=== PATIENT | male | born 1990 | race African-American/Black ===

== ENCOUNTER 2017-03-29 19:39 | Emergency (ER) | payer OTHER ==
[~2017-03-29] VITALS: Ht 185.4 cm; Wt 88.0 kg
[~2017-03-29 19:39] MED LIST: PLATMIS3; WALKER WHEELS/F1 MIS
[2017-03-29 19:42] VITALS: BP 133/78; PULSE 97; RESP 16; TEMP 98.8; O2SAT 98
--- NOTE | 2017-03-29 21:38 | PD ---
HPI Chief Complaint: Injury Time Seen by Provider: 21:38 Travel History International Travel<30 days: No Contact w/Intl Traveler<30days: No Traveled to known affect area: No History of Present Illness HPI 27 year old male with PMH of fracture of left femur and patella 02/17/17 presents to the ED for evaluation of left leg pain. Gradual onset. The patient can identify no new acute injury. He states that the the pain is worsened by flexion beyond 90. He endorses locking of the knee. Also complains that the leg sometimes feels numb. Denies fevers, chills, weakness of the extremity. He states that he was discharged from the hospital into police custody and has had no follow up. PFSH Past Medical History Arthritis: No Autoimmune Disease: No Anxiety: No Depression: No Cancer: No Cardiovascular Problems: No Chemotherapy: No Cerebrovascular Accident: No Diabetes: No Endocrine: No GERD: No Genitourinary: No Hiatal Hernia: No Immune Disorder: No Musculoskeletal: No Neurologic: No Psychiatric: No Reproductive: No Respiratory: No Migraines: No Radiation Therapy: No Seizures: No Sickle Cell Disease: No Thyroid Disease: No Ulcer: No Social History Alcohol Use: Yes Tobacco Use: Yes Substance Use: Yes (MARIJUANA) Allergies-Medications (Allergen,Severity, Reaction): Coded Allergies: No Known Allergies (Unverified , 02/17/17) Reported Meds & Prescriptions Reported Meds & Active Scripts Active Ibuprofen 800 Mg Tab 800 Mg PO Q8H Review of Systems Except as stated in HPI: all other systems reviewed are Neg Physical Exam Narrative GENERAL: Well-nourished, well-developed cooperative black male in [facility]. SKIN: Focused skin assessment warm/dry. Well healed surgical scars along the left leg. No signs of infection. HEAD: Normocephalic. EYES: No scleral icterus. No injection or drainage. NECK: Supple, trachea midline. No JVD or lymphadenopathy. CARDIOVASCULAR: Regular rate and rhythm without murmurs, gallops, or rubs. RESPIRATORY: Breath sounds clear and equal bilaterally. No accessory muscle use. GASTROINTESTINAL: Abdomen soft, non-tender, nondistended. MUSCULOSKELETAL: No cyanosis, or edema. Patient bears weight with a limp. FOCUSED LEFT LOWER EXTREMITY EXAM: 2+ DP pulse. +TTP of the patella and joint lines of the knee. No warmth. No edema. No patellar balloting. Patient is able to extend the knee to 0 and flex to 90. Into flexion beyond 90 elicits pain. Patient maintains full, active, painless range of motion of the hip, ankle and digits of the left leg. Neurovascularly intact. BACK: Nontender without obvious deformity. No CVA tenderness. Data Data Last Documented VS Vital Signs Date Time Temp Pulse Resp B/P Pulse Ox O2 Delivery O2 Flow Rate FiO2 03/29/17 19:42 98.8 97 16 133/78 98 Room Air Orders Femur (Ap & Lat/2vws) (03/29/17 22:08) Knee, Complete (4vws) (03/29/17 22:08) Ketorolac Inj (Toradol Inj) (03/29/17 22:15) Ice/Cold Pack (03/29/17 22:10) Mandatory Outpatient Referral (03/29/17 22:50) ^ Celestine Bandage (03/29/17 22:57) MDM Medical Decision Making Medical Screen Exam Complete: Yes Emergency Medical Condition: Yes Differential Diagnosis acute on chronic knee pain versus joint effusion versus fracture versus dislocation versus hardware failure versus less likely septic joint versus other Narrative Course 27 year old male with PMH of fracture of left femur and patella 02/17/17 presents to the ED for evaluation of left leg pain. Gradual onset. The patient can identify no new acute injury. He states that the the pain is worsened by flexion beyond 90. He endorses locking of the knee. Also complains that the leg sometimes feels numb. He states that he was discharged from the hospital into police custody and has had no follow up. Vitals reviewed. Physical exam reveals a cooperative black male in NAD. Patient bears weight with a limp.FOCUSED LEFT LOWER EXTREMITY EXAM: 2+ DP pulse. +TTP of the patella and joint lines of the knee. No warmth. No edema. No patellar balloting. Patient is able to extend the knee to 0 and flex to 90. Flexion beyond 90 elicits pain. Patient maintains full, active, painless range of motion of the hip, ankle and digits of the left leg. Neurovascularly intact. Patient was administered IM Toradol. Xrays reveal intact orthopedic hardware, good alignment of previous fracture, possible myositis ossificans. Certainly no reason to admit. Mandatory outpatient follow up placed with Dr. Garzon who performed the ORIF 02/11. Patient instructed to rest, ice, elevate, compress the wound, use a cane if needed for partial weightbearing he was prescribed a short course of anti-inflammatories. I explained the mandatory outpatient follow-up process with the patient. He indicated understanding of instructions and is agreeable to the care plan. This patient stable and discharged home. Diagnosis Primary Impression: Knee pain, left anterior Referrals: James Garzon MD Patient Instructions: General Instructions, Knee Pain (ED) Additional Instructions: Rest, ice, elevate,compress the extremity. Apply ice no longer than 10-15 minutes per hour a few times a day. 800 mg ibuprofen up to 3 times a day as needed for pain. Return to normal, gentle activity as tolerated. Use a cane on the affected side if you are unable to completely bear weight. No running, jumping activities for the next few weeks. Follow up with Dr. Garzon as discussed. Return to the ED for any urgent or emergent medical condition. Med/Other Pt SpecificInfo: Prescription(s) given Scripts Ibuprofen 800 Mg Bqx150 Mg PO Q8H #21 TAB Ref 0 Prov:Rocio Ceron DO 03/29/17 Disposition: 01 DISCHARGE HOME Condition: Stable Talia Jaime Mar 29, 2017 21:38
[2017-03-29] MEDS ORDERED: KETOROLAC TROMETHAMINE 60 MG/2 ML (IM) VIAL IM ONE (22:15)
--- NOTE | 2017-03-29 22:42 | RADRPT ---
EXAM DATE/TIME: 03/29/2017 22:20 [facility] COMPARISON: FEMUR LEFT (AP & LAT/2VWS), February 17, 2017, 14:56. INDICATIONS : Pain post femur surgery 2 months ago. MEDICAL HISTORY : Prior fracture. SURGICAL HISTORY : Surgical repair. ENCOUNTER: Initial ACUITY: 2 months PAIN SCORE: 3/10 LOCATION: Left lower femur. FINDINGS: 4 views left femur show a femoral neck screw and long intramedullary kayy with cerclage spinal wires t raversing the femur. This traverses a comminuted proximal diaphyseal fracture. Good alignment noted. The fracture lines remain. There is some heterogeneous calcification involving the adjacent soft tiss ues consistent with myositis ossificans. 2 screws involving the patella. CONCLUSION: Prior trauma with orthopedic hardware as detailed above. Wenceslao Matute Jr., MD on March 29, 2017 at 22:39 Board Certified Radiologist. This report was verified electronically.
--- NOTE | 2017-03-29 22:43 | RADRPT ---
EXAM DATE/TIME: 03/29/2017 22:22 [facility] COMPARISON: No previous studies available for comparison. INDICATIONS : Pain post femur surgery 2 months ago. MEDICAL HISTORY : Prior fracture. SURGICAL HISTORY : Surgical repair. ENCOUNTER: Initial ACUITY: 2 months PAIN SCORE: 4/10 LOCATION: Left upper knee. FINDINGS: 4 views the knee show 2 orthopedic screws traversing a patellar fracture. Alignment noted. The distal aspects of the femoral intramedullary kayy noted. No new fracture or dislocation. No joint effusion. Soft tissues are unremarkable. CONCLUSION: Prior trauma with orthopedic hardware. Wenceslao Matute Jr., MD on March 29, 2017 at 22:41 Board Certified Radiologist. This report was verified electronically.
[2017-03-29] MEDS ORDERED: IBUP800T23 PO (22:57)
== END 2017-03-29 23:42 | disposition home or self-care (01) ==
LOC: NEPD 19:39
DX: M25.562 Pain in left knee (principal); Z72.0 Tobacco use; F12.90 Cannabis use, unspecified, uncomplicated
CPT/HCPCS: 73552; 73564; 96372; 99284; J1885